=== PATIENT | male | born 1980 | race Caucasian/White ===

== ENCOUNTER 2020-08-24 01:34 | Emergency (ER) | payer SELFPAY ==
[~2020-08-24] VITALS: Ht 180.3 cm; Wt 90.7 kg
[2020-08-24 01:47] VITALS: BP 175/115; Ht 180.3 cm; Wt 90.7 kg
== END 2020-08-24 02:03 | disposition other institution (70) ==
LOC: ED 01:34
DX: S70.311A Abrasion, right thigh, initial encounter (principal); F17.210 Nicotine dependence, cigarettes, uncomplicated; X58.XXXA Exposure to other specified factors, initial encounter; Y93.89 Activity, other specified; Y92.89 Other specified places as the place of occurrence of the external cause; Y99.8 Other external cause status

== ENCOUNTER 2020-08-24 01:34 | Emergency (ER) | payer OTHER | END 2020-08-24 02:03 | disposition other institution (70) | LOC: ED 01:34 | DX: Z02.89 Encounter for other administrative examinations (principal) ==